=== PATIENT | female | born 1990 ===

== ENCOUNTER 2023-05-18 07:18 | Emergency (ER) | payer MEDICAID, SELFPAY ==
--- NOTE | ~2023-05-18 | CT_ITS ---
EXAMINATION: CT HEAD WITHOUT CONTRAST CLINICAL INFORMATION: Headache. COMPARISON: None available. TECHNIQUE: Contiguous axial imaging was performed from the skull base to vertex without intravenous administration of contrast. This CT examination was performed using dose optimization techniques as appropriate, variously including the following: *Automated exposure control *Adjustment of mA and/or kV according to patient size (this includes techniques or standardized protocols for targeted exams where dose is matched to indication/reason for exam; i.e. extremities or head) *Use of iterative reconstruction technique DLP: 690 mGy-cm FINDINGS: There is no evidence of acute intracranial hemorrhage or territorial infarction. No mass effect or midline shift is seen. Cerna to white matter differentiation is preserved. No extra-axial fluid collections are identified. No hydrocephalus. The osseous calvarium is intact. The mastoid cells are clear and well aerated. Mild mucosal thickening of the left maxillary sinus with mucus retention cysts. There are inspissated hyperdense secretions and opacification of the left frontal sinus extending into the nasofrontal recess with opacification of the ethmoid air cells. There is mucosal thickening of the left sphenoid sinus. There is cortical thickening of bilateral sphenoid sinuses. CT/CT head/brain wo IV con IMPRESSION: No acute intracranial pathology. Chronic pansinus disease as described above.
[2023-05-18 08:00] VITALS: BP 135/81; PULSE 76; RESP 16; TEMP 37; O2SAT 98
[2023-05-18 08:03] VITALS: BP 148/88; PULSE 87; O2SAT 98
--- NOTE | 2023-05-18 08:07 | ED.HA ---
HPI - Headache General Chief Complaint: Headache Stated Complaint: ODELL X2 HOURS,LANG:CREOLE PER EMS Time Seen by Provider: 05/18/23 07:27 Source: patient, EMS, old records reviewed and full time staff interpreter Mode of arrival: EMS Limitations: no limitations History of Present Illness HPI Narrative: 32 yo female denies any PMH s/p c section 2 years ago she notes she has intermittent almost daily frontal headaches since then but denies eclampsia. She is not on medications at home. Denies head trauma. She notes her headaches are worse with loud noise, no fevers, neck pain, vision changes, numbness or weakness. Not on thinners MD elicited complaint: headache Onset (ago): year(s) (2) Onset description: gradually and while at rest Location: frontal Severity: moderate Quality & Timing: aching and intermittent Exacerbating factors: noise Relieving factors: nothing Context: occurred at rest Associated symptoms: none Treatments prior to arrival: none Related Data Previous Rx's Medication Instructions Recorded amoxicillin 875 mg tablet 875 mg PO BID #14 tabs 05/18/23 fluticasone propionate 50 1 spray intranasal DAILY PRN nasal 05/18/23 mcg/actuation nasal congestion #16 grams spray,suspension Allergies Allergy/AdvReac Type Severity Reaction Status Date / Time Unable to Assess Allergy Verified 05/18/23 08:04 Review of Systems Review of Systems: Constitutional : No Fever, No Chills, No Fatigue ENT/Mouth : No sore throat, No Rhinorrhea Eyes: No Eye Pain, No Swelling, No Redness Cardiovascular : No Chest Pain, No SOB, No Dyspnea on Exertion Respiratory : No Cough, No Sputum Gastrointestinal : No Nausea, No Vomiting, No Diarrhea, No abdominal Pain Genitourinary : No Dysuria, No Urinary Frequency, No Hematuria, Musculoskeletal : No joint pain, No Myalgias, No Joint Swelling Skin : No Skin Lesions, No rash Neuro : No Weakness, No Numbness, No Dizziness, positive Headache Psych : No Anxiety/Panic, No Depression Heme/Lymph: No Bruising, No Bleeding,No Lymphadenopathy Endocrine : No Polyuria, No Polydipsia All other systems reviewed and are negative [facility] Past Medical History Attestation statement: The following information was validated with the patient. Medical History No pertinent past medical history Social History Social History (Updated 05/18/23 @ 08:11 by Arleen Coffey DO) Patient Tobacco Use Status: Never used Tobacco Advance Directives: No Advance Directives Information Provided: No Physical Exam Vital Signs: Vital Signs: Last Vital Signs Temp 98.6 F 05/18/23 08:00 Pulse 76 05/18/23 08:00 Resp 16 05/18/23 08:00 BP 135/81 05/18/23 08:00 Pulse Ox 98 05/18/23 08:00 O2 Del Method Room Air 05/18/23 08:00 BMI result Body Mass Index 0.0 Appearance: Alert. Oriented X3. No acute distress. anxious and tearful Eyes: Pupils equal, round and reactive to light. ENT: Pharynx normal. TMs normal bilaterally Neck: Normal inspection. Neck supple. normal ROM no meningeal signs CVS: Normal heart rate and rhythm. Pulses normal. Respiratory: No respiratory distress. Breath sounds normal. Abdomen: Soft and nontender. Skin: Skin warm and dry. Normal skin color. Normal skin turgor. Extremities: No lower extremity edema. No calf ttp Neuro: Oriented X 3. No motor deficit. No sensory deficit. Medical Decision Making Medical Decision Making MDM Narrative: 32 yo female with no PMH here with c/o intermittent headaches x 2 years frontal in nature gradual no trauma not on thinners after a very convoluted and long interview with full time staff interpreter from what I can tell is that her headaches are brought on by a neighbors son who is very loud and interferes with her daily life. She is wondering if we can help to stop this. I told her unfortunately we cannot help with that aspect she would have to go through housing avenues but since she has had a headache for years I would recommend a blood pressure check and imaging to look for a mass which she agrees. Given the chronicity doubt SAH/[employer] infection Differential Diagnosis Differential Diagnoses: The differential diagnosis associated with the presentation includes anxiety, stress, tension, migraine, mass Admission/Observation Consideration of admission/observation: Escalation of care including admission/observation considered 2 years of symptoms normal neuro exam stable for DC Independent Interpretation I performed an independent interpretation of an: CT Scan (no mass) Radiology Impression Discussion of test interpretation with radiology: I have reviewed the radiologist's reading. Independent Historian Clinical information obtained from an independent historian. History obtained from or confirmed by: EMS Prescription Management I considered prescription management with: Antibiotic Discharge Plan Discharge Clinical Impression: Chronic tension headache Qualifiers: Intractability: not intractable Qualified Code(s): G44.229 - Chronic tension-type headache, not intractable Patient Disposition: Home, Self-Care Instructions: Tension Headache (ED) Additional Instructions: CT scan showed sinusitis will treat with antibiotics this could be cause of headachesyou should talk to housing management or court to discuss loud neighbors. return for any numbness, weakness, vision changes or any other concerns. CT eskan? te montre sinizit pral trete ak antibyotik sa ka lak?z t?t f? mal ou ta dwe pale ak francescasyon ganga liuwa tribinal carla diskite sharan vwazen byen f?. retounen carla nenp?t p?t sansasyon, febl?s, karyn liriano oswa nenp?t l?t enkyetid. Prescriptions: New amoxicillin 875 mg tablet 875 mg PO BID Qty: 14 0RF fluticasone propionate 50 mcg/actuation spray,suspension 1 spray intranasal DAILY PRN (Reason: nasal congestion) Qty: 16 0RF Rx Instructions: administer into each nostril
== END 2023-05-18 11:34 | disposition home or self-care (01) ==
PROVIDERS: Emergency Provider Emergency Medicine
DX: G44.229 Chronic tension-type headache, not intractable (principal)
CPT/HCPCS: 70450; 99283; 99284